=== PATIENT | male | born 1955 | race Caucasian/White ===

== ENCOUNTER 2016-11-10 20:43 | Emergency (ER) | payer BC, OTHER ==
[~2016-11-10] VITALS: Ht 190.5 cm; Wt 138.0 kg
[~2016-11-10 20:43] MED LIST: LISI2.5T55 PO; ZOLO50TA PO
[2016-11-10 20:44] VITALS: BP 175/99; PULSE 88; RESP 16; TEMP 98.3; O2SAT 98
[2016-11-10] MEDS ORDERED: BACL10TA PO (20:55)
[2016-11-10] MEDS ORDERED: HYDR-3534 PO (20:55)
[2016-11-10] MEDS ORDERED: MEDR4PAK PO (21:33)
--- NOTE | 2016-11-10 21:36 | PD ---
HPI Chief Complaint: Back/ Neck Pain or Injury Time Seen by Provider: 21:33 Travel History International Travel<30 days: No Contact w/Intl Traveler<30days: No Traveled to known affect area: No History of Present Illness HPI 61-year-old white male presents to the department with complains of worsening lower back pain with sciatica on the left side. The patient states that he had an MRI of his back 3 weeks ago which showed nerve root impingement. He is in the process of waiting to be referred to her neurosurgeon. The patient states that he has been disabled with back pain. He states that earlier this past week he was sitting down in a chair and had acute exacerbation of his chronic pain. He states that he takes hydrocodone 7.5 and baclofen for back pain on a regular basis for his pain management doctor. He states that he was given a steroid Medrol Dosepak last month which seemed to help his pain the most. The patient is presenting today. For further evaluation treatment. PFSH Past Medical History Narrative Medical Lower back pain with left sciatica Diminished Hearing: No Social History Alcohol Use: Yes (4-6) Tobacco Use: Yes (1 ppd) Allergies-Medications (Allergen,Severity, Reaction): Coded Allergies: No Known Allergies (Unverified , 04/06/11) Reported Meds & Prescriptions Reported Meds & Active Scripts Active Medrol Dosepak (Methylprednisolone) 4 Mg Dspk 4 Mg PO DIRECTED Per Pharmacist direction Reported Lortab (Hydrocodone-Acetaminophen) 7.5-325 Mg Tab 1 Tab PO Q6H PRN Baclofen 10 Mg Tab 10 Mg PO Q8HR PRN Review of Systems Except as stated in HPI: all other systems reviewed are Neg Physical Exam Narrative GENERAL: Well-developed, well-nourished in no apparent distress. Nontoxic appearing. HEAD: Normocephalic, atraumatic. EYES: Pupils equal round and reactive. Extraocular motions intact. No scleral icterus. No injection or drainage. ENT: Nose clear. Throat without erythema, tonsillar hypertrophy or exudate. Uvula midline. Airway patent. NECK: Trachea midline. Supple, nontender, moves head freely. No central bony tenderness or spasm. CARDIOVASCULAR: Regular rate and rhythm without murmurs, gallops, or rubs. RESPIRATORY: Clear to auscultation. Breath sounds equal bilaterally. No wheezes , rales, or rhonchi. GASTROINTESTINAL: Abdomen soft, non-tender, nondistended. No hepato-splenomegaly , or palpable masses. No guarding. EXTREMITIES: No clubbing, cyanosis, or edema. No joint tenderness. BACK: No central bony tenderness to palpation of dorsal lumbar spine. Patient has left lower paralumbar tenderness with radiation into the left thigh and groin. He complains of hypoesthesia to the anterior thigh. Without deformity. No flank tenderness. No weakness. NEUROLOGICAL: Awake, alert and oriented x 3 .Cranial nerves grossly intact. Motor and sensory grossly within normal limits. Normal speech. Data Data Last Documented VS Vital Signs Date Time Temp Pulse Resp B/P (MAP) Pulse Ox O2 Delivery O2 Flow Rate FiO2 11/10/16 20:44 98.3 88 16 175/99 (124) 98 Room Air Orders Orders Orphenadrine Inj (Norflex Inj) (11/10/16 21:45) Dexamethasone Inj (Decadron Inj) (11/10/16 21:45) Ketorolac Inj (Toradol Inj) (11/10/16 21:45) MDM Medical Decision Making Medical Screen Exam Complete: Yes Emergency Medical Condition: Yes Medical Record Reviewed: Yes Differential Diagnosis MDM: High Differential diagnoses: AAA,Fracture, sprain, strain, HNP, nerve or vascular injury, epidural abscess, pilonidal cyst, pyelonephritis, UTI, nephrolithiasis, ureterolithiasis Narrative Course Patient's given Decadron 8 mg IM, Toradol 60 mg IM and Norflex 60 mg IM. This is acute exacerbation of chronic back pain with left sciatica Diagnosis Primary Impression: acute exacerbation of chronic back pain with left sciatica Patient Instructions: General Instructions Additional Instructions: Rest. Ice for the next 3 days followed by heat . Continue home medications. Medrol Dosepak.. Follow-up with a primary care doctor in one week. Return to the ER for emergencies. Med/Other Pt SpecificInfo: Prescription(s) given Scripts Methylprednisolone Dosepak (Medrol Dosepak) 4 Mg Dspk 4 MG PO DIRECTED, #1 DSPK 0 Refills Per Pharmacist direction Prov: Tanner Eagle MD 11/10/16 Disposition: 01 DISCHARGE HOME Condition: Stable Arnulfo Rose Nov 10, 2016 21:36
[2016-11-10] MEDS ORDERED: KETOROLAC TROMETHAMINE 60 MG/2 ML (IM) VIAL IM ONE (21:45)
[2016-11-10] MEDS ORDERED: ORPHENADRINE INJ 60 MG/2 ML AMP IM ONE (21:45)
[2016-11-10] MEDS ORDERED: DEXAMETHASONE SOD PHOS 4 MG/ML VIAL IM ONE (21:45)
== END 2016-11-10 22:12 | disposition home or self-care (01) ==
LOC: NETRI 20:43 → EDTENT 22:12
DX: M54.9 Dorsalgia, unspecified (principal); M54.32 Sciatica, left side; G89.29 Other chronic pain; F17.200 Nicotine dependence, unspecified, uncomplicated; Z79.899 Other long term (current) drug therapy
CPT/HCPCS: 96372; 99284; J1100; J1885; J2360